=== PATIENT | male | born 1980 | race Caucasian/White ===

== ENCOUNTER 2024-06-08 12:14 | Emergency (ER) | payer OTHER, SELFPAY ==
[2024-06-08] VITALS (25 sets, daily range): BP systolic 130–143; BP diastolic 73–81; PULSE 105–117; TEMP 37.1; O2SAT 94–97; BMI 37.9
--- NOTE | 2024-06-08 12:54 | ECG_ITS ---
The [facility] Test Date: 2024-06-08 Pat Name: RY ODOM Department: Room: - Gender: Male [employer] In[employer]: : 1980 Requested By: MABEL GOODE Order Number: [id number] Reading MD: CHRISTINE DELEON Measurements Intervals Smiley Rate: 116 P: 26 [place]: 168 QRS: 43 QRSD: 106 T: 43 QT: 284 QTc: 353 Interpretive Statements 1120 Sinus tachycardia 4068 Nonspecific Twave abnormality 6230 Left atrial enlargement 8305 Short QTc interval 0102 ARTIFACT PRESENT 9150 abnormal ECG No previous ECG available for comparison Electronically Signed On 06-08-2024 18:30:21 EDT by CHRISTINE DELEON
--- NOTE | 2024-06-08 12:54 | XR_ITS ---
The [address] [address] Patient Name: RY ODOM MRN: [id number] date: 1980 Sex: M Assigned Patient Location: ER Current Patient Location: ER Accession/Order Number: [id number] Exam Date: 06/08/2024 13:10 Report Date: 06/08/2024 13:58 At the request of: JAI PIERRE Procedure: XR chest 1V EXAM: XR chest 1V INDICATION: Near syncope. COMPARISON: None. TECHNIQUE: Single frontal view of the chest FINDINGS: Normal cardiomediastinal contours. No acute infiltrative process. No pleural effusion or pneumothorax. No acute osseous abnormality. XR/XR chest 1V IMPRESSION: No acute cardiopulmonary process. Electronically authenticated by: CASSIDY RILEY Date: 06/08/2024 13:58
[2024-06-08 13:03] LABS: Hematocrit 41.7 % (42.0-54.0); Hemoglobin 14.7 g/dL (14.0-18.0); Mean Corpuscular HGB Conc 35.3 g/dL (29.9-35.2); Mean Corpuscular Hemoglobin 30.8 pg (25.9-34.0); Mean Corpuscular Volume 87.4 fL (80.0-94.0); Mean Platelet Volume 10.2 fL (9.5-13.5); Platelet Count 345 10^3/uL (150-450); Red Blood Count 4.77 10^6/uL (4.70-6.10); Red Cell Distribution Width 12.4 % (11.0-15.0); White Blood Count 15.2 10^3/uL (4.0-11.0)
--- NOTE | 2024-06-08 13:08 | ED_ITS ---
HPI HPI - General Adult General Chief complaint: Syncope Stated complaint: DIZZINESS/GENERAL WEAKNESS Time Seen by Provider: 06/08/24 12:23 Source: patient Mode of arrival: walk-in History of Present Illness HPI narrative: Patient presents ED after near syncopal episode. Patient states he had a big presentation at the [facility] today and he made it almost to the end of the Presentation when he became lightheaded dizzy and had to sit down. He said he stumbled and had to sit down but he did not pass out fully. He said it was taped and his mom called right away to see if he was okay because she could tell something was wrong. No loss of consciousness. Patient states recently he has been under a lot of stress, he lost a friend that was close to him and he has been in charge of planning the and presentation at the [facility] today. He has not been eating and drinking well and he has not really been taking care of himself well over the past few days. He is worked about 42 hours in the past few days. Patient states He has recently had an upset stomach and has had some diarrhea. At the end of the presentation he started to feel like he was going to have diarrhea which made him very very nervous in front of the whole crowd and that is when he became lightheaded and dizzy and nearly passed out. No blood in the stool. No upper respiratory symptoms. No chest pain no abdominal pain. Patient states he feels better at this time. His blood pressure is slightly elevated. Heart rate is slightly elevated although he did say that he feels a little anxious. Related Data Home Medications ?Medication ?Instructions ?Recorded ?Confirmed amlodipine 10 mg tablet 10 mg PO DAILY 06/08/24 06/08/24 atorvastatin 10 mg tablet 10 mg PO DAILY 06/08/24 06/08/24 lisinopril 40 mg tablet 40 mg PO DAILY 06/08/24 06/08/24 Previous Rx's ?Medication ?Instructions ?Recorded ciprofloxacin HCl 500 mg tablet 500 mg PO BID 10 days #20 tabs 06/08/24 (Cipro) Allergies Allergy/AdvReac Type Severity Reaction Status Date / Time No Known Drug Allergies Allergy Verified 06/08/24 12:23 Opioid HPI Opioid Management Most Recent Opioid Data: No Data to Display Review of Systems ROS Status of ROS 10 or more systems reviewed and unremark able except as noted in history and below Exam Narrative Exam Narrative: Time Seen: [] Vital Signs: [Per nurse's notes.] General: [Alert] Skin: [Warm, dry, no rash.] Head: [Normocephalic, atraumatic.] Neck: [Supple, trachea midline.] Eye: [Pupils are equal, round and reactive to light, extraocular movements are intact, normal conjunctiva.] Ears, nose, mouth and throat: oral mucosa moist. Cardiovascular: [Regular rate and rhythm, no murmur.] Respiratory: [Lungs are clear to auscultation, respirations are non-labored, breath sounds are equal.] Chest wall: [No tenderness, no deformity.] Gastrointestinal: [Soft, nontender, non distended, normal bowel sounds.] MSK: 5 out of 5 muscle strength x 4 extremities no calf pain or edema Lymphatics: [No lymphadenopathy.] Psychiatric: [Cooperative, appropriate mood & affect.] Neurological: [Alert and oriented to person, place, time, and situation, no focal neurological deficit observed.] Constitutional Vital Signs, click to edit/add: Last Vital Signs Temp 98.8 F 06/08/24 12:17 Pulse 108 H 06/08/24 16:10 Resp 15 06/08/24 16:10 BP 131/74 06/08/24 14:30 Pulse Ox 96 06/08/24 14:50 O2 Del Method Room Air 06/08/24 12:17 Course Vital Signs Vital signs: Vital Signs Temperature 98.8 F 06/08/24 12:17 Pulse Rate 117 H 06/08/24 12:17 Respiratory Rate 16 06/08/24 12:17 Blood Pressure 142/78 H 06/08/24 12:17 Pulse Oximetry 96 06/08/24 12:17 Oxygen Delivery Method Room Air 06/08/24 12:17 Temperature 98.8 F 06/08/24 12:17 Pulse Rate 108 H 06/08/24 16:10 Respiratory Rate 15 06/08/24 16:10 Blood Pressure 131/74 06/08/24 14:30 Pulse Oximetry 96 06/08/24 14:50 Oxygen Delivery Method Room Air 06/08/24 12:17 Medical Decision Making MDM Narrative Medical decision making narrative: Patient's labs show an elevated white blood cell count.Mildly low sodium and an elevated D-dimer. CT angio chest was ordered because of the elevated D-dimer and I did a CT abdomen pelvis due to the diarrhea and near syncope. CT shows mesenteric panniculitis as well as some lymphadenopathy and colitis which could be infectious or inflammatory. He also has a cyst on the kidney which will need outpatient follow-up. Patient was given Cipro here in ED and a prescription for home. Follow-up closely with family doctor concerning all of the symptoms. May need colonoscopy once the inflammation Calms down. Patient's heart rate has improved he is feeling better he said he feels basically back to normal. Return to ED if worsening symptoms or further concerns. Troponin x 2 negative. Patient is Comfortable with care plan for home Differential Diagnosis Differential Diagnosis: PE, syncope, electrolyte abnormality, infection, colitis Medical Records Medical records reviewed: Yes I reviewed the patient's medical records Lab Data Lab results reviewed: Yes I reviewed the patient's lab results Labs: Lab Results 06/08/24 06/08/24 06/08/24 Range/Units 12:30 13:24 17:43 WBC 15.2 H (4.0-11.0) 10^3/uL RBC 4.77 (4.70-6.10) 10^6/uL Hgb 14.7 (14.0-18.0) g/dL Hct 41.7 L (42.0-54.0) % MCV 87.4 (80.0-94.0) fL MCH 30.8 (25.9-34.0) pg MCHC 35.3 H (29.9-35.2) g/dL RDW 12.4 (11.0-15.0) % Plt Count 345 (150-450) 10^3/uL MPV 10.2 (9.5-13.5) fL Seg Neuts % (Manual) 81.0 H (43.0-75.0) Lymphocytes % (Manual) 9.0 L (20.5-60.0) % Monocytes % (Manual) 9.0 (1.7-12.0) % Eosinophils % (Manual) 1.0 (0.9-7.0) % Basophils % (Manual) 0.0 L (0.2-2.0) % Neutrophils # (Manual) 12.31 H (1.4-6.5) 10^3/uL Lymphocytes # (Manual) 1.36 (1.20-3.80) 10^3/uL Monocytes # (Manual) 1.36 H (0.30-0.80) 10^3/uL Eosinophils # (Manual) 0.15 (0.00-0.70) 10^3/uL Basophils # (Manual) 0.00 (0.00-0.10) 10^3/uL D-Dimer 1.58 H* (<=0.59) mg/L FEU Sodium 133 L (136-145) mmol/L Potassium 3.5 (3.5-5.1) mmol/L Chloride 99 (98-107) mmol/L Carbon Dioxide 19.9 L (21.0-32.0) mmol/L Anion Gap 17.6 BUN 14.0 (7.0-18.0) mg/dL Creatinine 1.18 (0.70-1.30) mg/dL Est GFR ( Amer) >60 (>=60) Est GFR (Non-Af Amer) >60 (>=60) BUN/Creatinine Ratio 11.9 Glucose 114 H (74-106) mg/dL Calcium 9.1 (8.5-10.1) mg/dL Total Bilirubin 0.5 (0.2-1.0) mg/dL AST 28 (15-37) U/L ALT 66 H (16-63) U/L Alkaline Phosphatase 82 (46-116) U/L Troponin I High Sens 31.6 28.4 (4.0-76.1) pg/mL Total Protein 7.7 (6.4-8.2) g/dL Albumin 4.1 (3.4-5.0) g/dL Globulin 3.6 g/dL Albumin/Globulin Ratio 1.1 SARS-CoV-2 Ag (CV2AG) Negative (NEGATIVE) Imaging Data CT scan - abdomen: Radiologist's impression: ITS Impressions Chest X-Ray 06/08/24 12:54 IMPRESSION: No acute cardiopulmonary process. Electronically authenticated by: CASSIDY RILEY Date: 06/08/2024 13:58 Abdomen/Pelvis CT 06/08/24 14:03 IMPRESSION: No evidence of acute pulmonary embolus. A 4.2 cm cyst in the midportion of the right kidney with enhancing septae, representing Bosniak type II F/type III. Nonemergent renal protocol MRI is recommended for better evaluation. Hepatic steatosis. Prominent mid abdomen mesenteric lymph nodes with surrounding fat stranding, likely representing mesenteric panniculitis. Mild circumferential wall thickening of the ascending colon up to the sigmoid, may represent inflammatory/infectious colitis. Correlation with patient's history is recommended. Electronically authenticated by: Flipaste Date: 06/08/2024 17:35 Chest CTA 06/08/24 14:03 IMPRESSION: No evidence of acute pulmonary embolus. A 4.2 cm cyst in the midportion of the right kidney with enhancing septae, representing Bosniak type II F/type III. Nonemergent renal protocol MRI is recommended for better evaluation. Hepatic steatosis. Prominent mid abdomen mesenteric lymph nodes with surrounding fat stranding, likely representing mesenteric panniculitis. Mild circumferential wall thickening of the ascending colon up to the sigmoid, may represent inflammatory/infectious colitis. Correlation with patient's history is recommended. Electronically authenticated by: Flipaste Date: 06/08/2024 17:35 ECG Data Attestation: I personally reviewed and interpreted this ECG as follows: Interpretation: EKG INTERPRETATION Time: []1222 Rate: []116 Rhythm: _ []Sinus tachycardia ST segments: _ []No acute ST elevation or depression T waves: _ [] Ectopy: _ [] P wave/TN interval: _ [] QRS interval: _ [] QT interval: _ [] Comparison: _ [] Comparison EKG date: [] Performed by: [self] Discharge Plan Discharge Stand Alone Forms: Portal Instructions Chief Complaint: Syncope Clinical Impression: Colitis Patient Disposition: Home, Self-Care Time of Disposition Decision: 18:23 Mode of Transportation: Private Vehicle Prescriptions / Home Meds: New ciprofloxacin HCl [Cipro] 500 mg tablet 500 mg PO BID 10 Days Qty: 20 0RF No Action amlodipine 10 mg tablet 10 mg PO DAILY atorvastatin 10 mg tablet 10 mg PO DAILY lisinopril 40 mg tablet 40 mg PO DAILY Print Language: Danish Instructions: Colitis (ED) Referrals: MABEL GOODE DO [Primary Care Provider] - 1 week
[2024-06-08] MEDS: 0.9 % SODIUM CHLORIDE 1,000 ML 1000 ML IV (13:19)
[2024-06-08 13:21] LABS: Alanine Aminotransferase 66 U/L (16-63); Albumin Globulin Ratio 1.1; Albumin Level 4.1 g/dL (3.4-5.0); Alkaline Phosphatase 82 U/L (46-116); Anion Gap 17.6; Aspartate Amino Transferase 28 U/L (15-37); BUN Creatinine Ratio 11.9; Bilirubin Total 0.5 mg/dL (0.2-1.0); Calcium 9.1 mg/dL (8.5-10.1); Carbon Dioxide 19.9 mmol/L (21.0-32.0); Chloride 99 mmol/L (98-107); Estimated GFR (African America >60 (>=60); Estimated GFR (Non-African Ame >60 (>=60); Globulin 3.6 g/dL; Glucose 114 mg/dL (74-106); Potassium 3.5 mmol/L (3.5-5.1); Sodium 133 mmol/L (136-145); Total Protein 7.7 g/dL (6.4-8.2); Troponin I High Sensitivity 31.6 pg/mL (4.0-76.1)
[2024-06-08 13:28] LABS: Eosinophils Absolute Manual 0.15 10^3/uL (0.00-0.70); Lymphocytes Absolute Manual 1.36 10^3/uL (1.20-3.80); Monocytes Absolute Manual 1.36 10^3/uL (0.30-0.80); Segmented Neut Absolute Manual 12.31 10^3/uL (1.4-6.5)
[2024-06-08 13:54] LABS: Internal Control Within Normal Limits; SARS-CoV-2 Ag NEGATIVE (NEGATIVE)
[2024-06-08 14:00] LABS: D Dimer 1.58 mg/L FEU (<=0.59)
--- NOTE | 2024-06-08 14:03 | CT_ITS ---
[address] [address] Patient Name: RY ODOM MRN: [id number] date: 1980 Sex: M Assigned Patient Location: ER Current Patient Location: Accession/Order Number: [id number] Exam Date: 06/08/2024 14:20 Report Date: 06/08/2024 17:35 At the request of: JAI PIERRE Procedure: CT abdomen pelvis w con EXAM: CT angio chest, CT abdomen pelvis w con HISTORY: elevated dimer COMPARISON: None. TECHNIQUE: CT chest with intravenous contrast was performed with timing for the evaluation for pulmonary arteries. MIP (maximum intensity projection) images or 3D post processing was performed. Multiplanar reformats were performed. Subsequent CT imaging of the abdomen and pelvis was performed with intravenous contrast with multiplanar reformats performed. Dose reduction techniques were achieved by using automated exposure control and/or adjustment of mA and/or kV according to patient size and/or use of iterative reconstruction technique. FINDINGS: Lungs: No consolidation, or pneumothorax, or effusion. Airways: Normal. Mediastinum: No adenopathy. Aorta: No aneurysm. Cardiac: Normal size. No pericardial effusion. Pulmonary vasculature: Diagnostic opacification of pulmonary arteries without evidence of pulmonary embolus. Normal morphology. Bones: No acute bony abnormality. Axilla: No adenopathy. Thyroid gland: No abnormality demonstrated on provided imaging. Soft tissues: Unremarkable. Additional findings: None. CT ABDOMEN AND PELVIS: GI upper: Unremarkable. Liver: Hepatic steatosis. Normal size and contour. Gallbladder: No significant abnormality. No cholelithiasis. Biliary system: No intra or extrahepatic biliary ductal dilatation. Spleen: Normal size. Pancreas: Unremarkable. Adrenal glands: Normal adrenal glands. Kidneys/ureters: Normal contours. No hydronephrosis. No nephrolithiasis or ureterolithiasis. There is a 4.2 cm cyst in the midportion of the right kidney with enhancing septae, representing Bosniak type II F/type III. Nonemergent renal protocol MRI is recommended for better evaluation. Vessels: No aneurysm. Lymph Nodes: Prominent mid abdomen mesenteric lymph nodes with surrounding fat stranding, likely representing mesenteric panniculitis. Small bowel: No wall thickening or dilatation. Colon: No dilatation. Mild circumferential wall thickening of the ascending colon up to the sigmoid, may represent inflammatory/infectious colitis. Correlation with patient's history is recommended. Appendix: No findings of appendicitis. Peritoneal cavity: No free fluid or peritoneum. Lower : Unremarkable. Bones: No acute bony abnormality. Soft tissues: No acute finding. Additional findings: None. CT/CT abdomen pelvis w con IMPRESSION: No evidence of acute pulmonary embolus. A 4.2 cm cyst in the midportion of the right kidney with enhancing septae, representing Bosniak type II F/type III. Nonemergent renal protocol MRI is recommended for better evaluation. Hepatic steatosis. Prominent mid abdomen mesenteric lymph nodes with surrounding fat stranding, likely representing mesenteric panniculitis. Mild circumferential wall thickening of the ascending colon up to the sigmoid, may represent inflammatory/infectious colitis. Correlation with patient's history is recommended. Electronically authenticated by: JACKY CRAMER Date: 06/08/2024 17:35
--- NOTE | 2024-06-08 14:03 | CT_ITS ---
[address] [address] Patient Name: RY ODOM MRN: [id number] date: 1980 Sex: M Assigned Patient Location: ER Current Patient Location: Accession/Order Number: [id number] Exam Date: 06/08/2024 14:20 Report Date: 06/08/2024 17:35 At the request of: JAI PIERRE Procedure: CT angio chest EXAM: CT angio chest, CT abdomen pelvis w con HISTORY: elevated dimer COMPARISON: None. TECHNIQUE: CT chest with intravenous contrast was performed with timing for the evaluation for pulmonary arteries. MIP (maximum intensity projection) images or 3D post processing was performed. Multiplanar reformats were performed. Subsequent CT imaging of the abdomen and pelvis was performed with intravenous contrast with multiplanar reformats performed. Dose reduction techniques were achieved by using automated exposure control and/or adjustment of mA and/or kV according to patient size and/or use of iterative reconstruction technique. FINDINGS: Lungs: No consolidation, or pneumothorax, or effusion. Airways: Normal. Mediastinum: No adenopathy. Aorta: No aneurysm. Cardiac: Normal size. No pericardial effusion. Pulmonary vasculature: Diagnostic opacification of pulmonary arteries without evidence of pulmonary embolus. Normal morphology. Bones: No acute bony abnormality. Axilla: No adenopathy. Thyroid gland: No abnormality demonstrated on provided imaging. Soft tissues: Unremarkable. Additional findings: None. CT ABDOMEN AND PELVIS: GI upper: Unremarkable. Liver: Hepatic steatosis. Normal size and contour. Gallbladder: No significant abnormality. No cholelithiasis. Biliary system: No intra or extrahepatic biliary ductal dilatation. Spleen: Normal size. Pancreas: Unremarkable. Adrenal glands: Normal adrenal glands. Kidneys/ureters: Normal contours. No hydronephrosis. No nephrolithiasis or ureterolithiasis. There is a 4.2 cm cyst in the midportion of the right kidney with enhancing septae, representing Bosniak type II F/type III. Nonemergent renal protocol MRI is recommended for better evaluation. Vessels: No aneurysm. Lymph Nodes: Prominent mid abdomen mesenteric lymph nodes with surrounding fat stranding, likely representing mesenteric panniculitis. Small bowel: No wall thickening or dilatation. Colon: No dilatation. Mild circumferential wall thickening of the ascending colon up to the sigmoid, may represent inflammatory/infectious colitis. Correlation with patient's history is recommended. Appendix: No findings of appendicitis. Peritoneal cavity: No free fluid or peritoneum. Lower : Unremarkable. Bones: No acute bony abnormality. Soft tissues: No acute finding. Additional findings: None. CT/CT angio chest IMPRESSION: No evidence of acute pulmonary embolus. A 4.2 cm cyst in the midportion of the right kidney with enhancing septae, representing Bosniak type II F/type III. Nonemergent renal protocol MRI is recommended for better evaluation. Hepatic steatosis. Prominent mid abdomen mesenteric lymph nodes with surrounding fat stranding, likely representing mesenteric panniculitis. Mild circumferential wall thickening of the ascending colon up to the sigmoid, may represent inflammatory/infectious colitis. Correlation with patient's history is recommended. Electronically authenticated by: JACKY CRAMER Date: 06/08/2024 17:35
[2024-06-08] MEDS: DEXAMETHASONE SOD PHOS (PF) 10 MG/ML VIAL IV (15:21)
[2024-06-08] MEDS: DIPHENHYDRAMINE HCL 50 MG/ML VIAL 25 MG IV (15:21)
[2024-06-08 18:15] LABS: Troponin I High Sensitivity 28.4 pg/mL (4.0-76.1)
[2024-06-08] MEDS: CIPROFLOXACIN HCL 500 MG TABLET PO (18:16)
== END 2024-06-08 18:44 | disposition home or self-care (01) ==
PROVIDERS: Emergency Provider Emergency Medicine; PCP Family Medicine
DX: K52.9 Noninfective gastroenteritis and colitis, unspecified (principal); R79.1 Abnormal coagulation profile
CPT/HCPCS: 36415; 71045; 71275; 74177; 80053; 84484; 85007; 85027; 85378; 87811; 93005; 96361; 96374; 96375; 99285; J1100; J1200; Q9967